=== PATIENT | male | born 1935 | race Caucasian/White ===

== ENCOUNTER 2017-03-22 16:53 | Inpatient (IN) | payer OTHER ==
--- NOTE | ~2017-03-22 | DS ---
Unit #: [id number] #: [id number] Patient: YASH LEMONS [id number] [address] [address] [id number] I MR#: [id number] NAME: YASH LEMONS ROOM: 565 Age: 81 Sex: M Admission Date: 03/22/2017 : 1935 Discharge Date: 03/29/2017 Attending Physician: Kylie Tolentino M.D. Primary Care Physician: Isi Barraza M.D. DISCHARGE SUMMARY FINAL DIAGNOSES 1. Acute on chronic hypoxic respiratory failure. 2. Right lower lobe pneumonia. 3. Chronic obstructive pulmonary disease. 4. Hypotension on admission, which is improved. 5. Reformed smoker. 6. History of coronary artery disease, status post stents. 7. Hyperlipidemia. 8. History of pulmonary fibrosis. DISCHARGE MEDICATIONS 1. Omnicef 300 mg p.o. b.i.d. for 5 days. 2. Prednisone tapering dose. 3. Toprol 25 mg daily. 4. Brovana inhaler daily. 5. Isosorbide 20 mg t.i.d. 6. Federico-Dur 300 mg daily. 7. Potassium 10 mEq daily. 8. Aspirin 81 mg daily. 9. Singulair 10 mg daily. 10. Atorvastatin 10 mg daily. 11. Colchicine 0.6 mg daily p.r.n. 12. Discontinuing medication is Altace 5 mg daily and hydrochlorothiazide 12.[address] Camilo from pulmonary services. PROCEDURES PERFORMED Diagnostic bronchoscopy, which showed no endobronchial lesions, thick mucoid secretions in both lungs. DIAGNOSTIC DATA LABORATORY: At discharge, bronch culture is normal julieta. Blood culture is no growth. Cytology in the bronch is benign bronchial epithelial cells. BMP shows sodium 141, potassium 4.6, chloride 101, BUN 20, creatinine 0.5. CBC shows white blood cell count 9.0, hemoglobin 12.1, hematocrit 39.2, platelet count 182. IMAGING: CT scan of the chest without contrast was done and that showed right lower lobe consolidation. HOSPITAL COURSE Mr. Galloway is an 81-year-old male who was admitted to the hospital with Unit #: [id number] #: [id number] Patient: YASH LEMONS shortness of breath and was admitted with acute chronic obstructive pulmonary disease exacerbation and pneumonia and vxjjn-ie-wpvogom respiratory failure. The patient as treated with IV antibiotics and IV prednisone. Dr. Camilo was consulted. The patient had bronch done. Findings are as above. He is doing much better at this time and is being discharged home on the above medications. Prescription have been written. Please note the patient was hypotensive on admission and now blood pressure medications have been adjusted. The patient needs to follow up with Dr. Camilo as an outpatient. The patient is on 3 liters nasal cannula, continue that. PHYSICAL EXAMINATION VITALS: At discharge, blood pressure 120/62, respiratory rate 18, pulse 85, temperature 97.8, oxygen saturation 100%. HEENT: Head is normocephalic. CHEST: Chest is fair air entry. Decreased at the bases. Negative edema. DISCHARGE INSTRUCTIONS 1. Follow up with primary care provider in one week. 2. Follow up with Dr. Camilo in two weeks. Please note, I have discussed with the patient's about the plan of care and she does verbalize understanding. Dictated by... Kylie Tolentino M.D. Mary TD: 03/30/2017 08:46 JOB #: [id number] DISCHARGE SUMMARY Page 1 of 1 X Kylie Tolentino MD X DISCHARGE SUMMARY
--- NOTE | ~2017-03-22 | CR72 ---
[facility] A Service of [facility] RADIOLOGY TEXT RESULTS PATIENT: YASH LEMONS LOCATION: [facility] : 33 UNIT #: [id number] AGE: [address]: Kylie Tolentino MD SEX: M ORDER DR: [id number] [facility] [address] [facility] [place], [place] [address] [id number] I MR#: [id number] Acc #: [id number] NAME: YASH LEMONS : 1935 SEX: M STUDY DATE/TIME: 03/22/2017 15:10 UNIT: CEDOF ROOM: 08610 STUDY DESCRIPTION: CR Chest Single View Portable Attending Physician: Kylie Tolentino M.D. Ordering Physician: [facility] Primary Care Physician: Isi Barraza M.D. MEDICAL IMAGING REPORT This report is preliminary unless electronic signature is present EXAM Portable chest 03/22/2017 HISTORY Shortness of breath, cough, congestion since yesterday. COMPARISON STUDIES 12/31/2015 FINDINGS There are new patchy infiltrates within the right lung mainly in the mid and lower zones suspicious for pneumonia. Heart size stable. Degenerative changes of the shoulders and thoracic spine. IMPRESSION New patchy infiltrates in the right lung mainly in the mid and lower zones suspicious for pneumonia. Dictated by... Galindo Dow M.D. THIS IS AN ELECTRONICALLY VERIFIED REPORT Galindo Dow M.D. at 03/23/2017 5:10 PM Michaelle TD: 03/22/2017 17:30 JOB #: [id number] MEDICAL IMAGING REPORT Page 1 of 1 COPY
--- NOTE | ~2017-03-22 | CO ---
Unit #: [id number] #: [id number] Patient: YASH LEMONS [id number] [address] [place], [place] [address] [id number] I MR#: [id number] NAME: YASH LEMONS ROOM: 565 Age: 81 Sex: M Admission Date: 03/22/2017 : 1935 Attending Physician: Kylie Tolentino M.D. Primary Care Physician: Isi Barraza M.D. CONSULTATION REPORT REASON FOR CONSULTATION COPD exacerbation and respiratory failure. CHIEF COMPLAINT Shortness of breath. HISTORY OF PRESENT ILLNESS An 81-year-old male with past medical history of COPD, hypertension, chronic kidney disease, coronary artery disease, dyslipidemia who presented with a complaint of cough, shortness of breath, increasing sputum production who has been admitted with impression of community-acquired pneumonia, COPD exacerbation, respiratory failure. I am seeing the patient at bedside. He denies any headache, blurry vision. No chest pain. REVIEW OF SYSTEMS Positive for pallor. No edema. No cyanosis or jaundice. Rest are per history of present illness. Rest of 12-point review of systems has been reviewed and is negative. MEDICATIONS As per MAR, has been reviewed. ALLERGIES Have been reviewed. PAST MEDICAL HISTORY As described above. SOCIAL HISTORY Positive for smoking. No alcohol. No drug abuse. FAMILY HISTORY None as per record. PHYSICAL EXAMINATION VITAL SIGNS: Temperature 98, pulse 87, respirations 12, blood pressure 130/70. NEUROLOGIC: Awake, alert, oriented. No neuro deficit. HEENT: PERRLA plus 1. NECK: Supple. No JVD. CHEST: Bilateral air entry. Bilateral mild rhonchi. GASTROINTESTINAL: Nontender, soft. Bowel sounds positive. EXTREMITIES: No edema. Unit #: [id number] #: [id number] Patient: YASH LEMONS SKIN: No rash. No ulcer. LYMPHATIC: No lymphadenopathy. DIAGNOSTIC STUDIES Labs and imaging have been reviewed. ASSESSMENT 1. Acute hypoxic hypercapnic respiratory failure. 2. Acute exacerbation of chronic obstructive pulmonary disease. 3. Community-acquired pneumonia. PLAN Plan is to continue IV steroids, IV antibiotics, bronchodilator, gastrointestinal/deep venous thrombosis prophylaxis. Get a noncontrast CT of the chest. Wean oxygen. Please see orders for detailed plan. Thank you very much for this consultation. Dictated by... Keaton Salmeron TD: 03/23/2017 12:39 JOB #: [id number] CONSULTATION REPORT Page 1 of 1 X Clemente Camilo MD CONSULTATION REPORT
--- NOTE | ~2017-03-22 | HP ---
Unit #: [id number] #: [id number] Patient: YASH LEMONS [id number] [address] [place], [place] [address] [id number] I MR#: [id number] NAME: YASH LEMONS ROOM: 95612 Age: Sex: M Admission Date: 03/22/2017 : 1935 Attending Physician: Kylie Tolentino M.D. Primary Care Physician: Isi Barraza M.D. HISTORY AND PHYSICAL CHIEF COMPLAINT Shortness of breath. HISTORY OF PRESENTING ILLNESS An 81-year-old male who lives with his , has a history of severe COPD, chronic respiratory failure, coronary artery disease and hypertension, came with a complaint of shortness of breath On Wednesday the patient's noticed that he was having shortness of breath. She advised him to come to ER but patient refused completely. Yesterday his shortness of breath was getting worse. He has not been eating for last few days. He was feeling nauseous and some cough. His temperature was 98.2 per . He did not complain of chest pain but he was wheezing. Patient came to ER and is being admitted to telemetry unit for acute COPD exacerbation. Patient is being evaluated in emergency room six. There is no complaint of chest pain, no complaint of fever, chills or rigors, no complaint of vomiting or diarrhea. PAST MEDICAL HISTORY 1. History of chronic obstructive pulmonary disease. 2. History of coronary artery disease, status post stent placement. 3. Chronic respiratory failure on home O2. 4. Reformed smoker, quit in 1995. 5. Hypertension. 6. Hyperlipidemia. 7. Maybe history of pulmonary fibrosis. HOME MEDICATION Med list is being compiled at this time in ER. SOCIAL HISTORY Patient lives at home with his . He has past history of smoking, quit in 1995, no history of alcohol abuse or drug abuse. ALLERGIES Iodine and allopurinol. PAST SURGICAL HISTORY History of stent placement and PCI. REVIEW OF SYMPTOMS As per history of presenting illness. No history of abdominal pain. No history of constipation, diarrhea. No history of nausea or vomiting. No history of chest pain. No history of syncopal episode or dizziness. He Unit #: [id number] #: [id number] Patient: YASH LEMONS does complain of fatigue and tiredness. PHYSICAL EXAMINATION Patient is being evaluated in room six in ER. VITAL SIGNS: Blood pressure is 99/65. Respiratory rate 24. Pulse is 114. Temperature 98.7. Oxygen saturation dropped down to 86% and patient is on BiPAP at this time. HEENT: Head is normocephalic. Eye movements are normal. NECK: Neck is supple. CHEST: Has decreased air entry bilateral, crackle in the right base is present, wheezing is heard. CVS: S1, S2 positive, regular rhythm, tachycardia. ABDOMEN: Soft. EXTREMITIES: Negative edema. TRAINING ASSOCIATE: Patient is awake, alert and oriented x3. No focal neurological deficit. DIAGNOSTIC STUDIES LABORATORY WORKUP: WBC 19.9, hemoglobin 14.8, hematocrit 47.2 and platelet count of 161, sodium 139, potassium 3.8, chloride 94, BUN 22, creatinine 0.9, troponin is less than 0.05. IMAGING: Chest x-ray preliminary report infiltrate. ASSESSMENT Patient is being admitted to a telemetry unit with: 1. Acute chronic obstructive pulmonary disease exacerbation. 2. Pithw-dq-iudxynl respiratory failure. 3. Community-acquired pneumonia. 4. Hypotension with a history of hypertension. 5. Reformed smoker. PLAN Plan is admit to telemetry. IV Solu-Medrol 60 mg q.6 h. is being started, mini-neb treatment is being started, IV Rocephin and IV Zithromax will be given. Dr. Camilo will be consulted. Sputum for Gram stain and culture will be done. CBC, BMP in the morning. Lovenox 40 mg subcu daily for DVT prophylaxis. Medication will be reviewed. Plan of care has been discussed with patient and the patient's . Dictated by Keaton Bain TD: 03/22/2017 16:25 JOB #: [id number] Unit #: [id number] #: [id number] Patient: YASH LEMONS HISTORY AND PHYSICAL Page 1 of 1 X Kylie Tolentino MD HISTORY AND PHYSICAL
--- NOTE | ~2017-03-22 | OR ---
Unit #: [id number] #: [id number] Patient: YASH LEMONS [id number] [address] [address] [id number] I MR#: [id number] NAME: YASH LEMONS ROOM: 5 Date of Procedure: 03/26/2017 Admission Date: 03/22/2017 Surgeon: Clemente Camilo M.D. : 1935 Attending Physician: Kylie Tolentino M.D. Primary Care Physician: Isi Barraza M.D. PROCEDURE OPERATIVE NOTE PROCEDURE PERFORMED Diagnostic bronchoscopy. INDICATIONS Pneumonia. PREPROCEDURE DIAGNOSIS Pneumonia. POSTPROCEDURE DIAGNOSIS Pneumonia. DETAILS OF PROCEDURE After (1) consent from patient explaining the risks and benefits. Patient placed in a proper position. Bronchoscope introduced through the oral cavity. Vocal cords appear to be symmetrically moving toward the midline. Trachea was normal. Deisi was sharp. We examined right upper and middle, right lower lobe, left upper lobe, lingula, and left lower lobe. No endobronchial lesion was found. There were thick mucoid secretions in both lungs, which were therapeutically suctioned. Then, we did a bronchoalveolar lavage in the right lower lobe area with 60 mL of saline in and 20 mL back. Patient tolerated procedure very well. No complications happened. Dictated by... Keaton Salmeron TD: 03/26/2017 10:08 JOB #: [id number] Unit #: [id number] #: [id number] Patient: YASH LEMONS PROCEDURE OPERATIVE NOTE Page 1 of 1 X Clemente Camilo MD PROCEDURE OPERATIVE NOTE
--- NOTE | ~2017-03-22 | EKG ---
PATIENT: YASH LEMONS UNIT #: [id number] Ventricular Rate: 123 BPM Atrial Rate: 123 BPM P-R Interval: 152 ms QRS Duration: 106 ms Q-T Interval: 316 ms QTC Calculation(Bezet): 452 ms P [place]: 84 degrees Calculated R [place]: 40 degrees Calculated T [place]: 9 degrees Diagnosis Line: Diagnosis Line: Sinus tachycardia Diagnosis Line: Possible Left atrial enlargement Diagnosis Line: Inferior infarct (cited on or before 30-DEC-2015) Diagnosis Line: Abnormal ECG Diagnosis Line: When compared with ECG of 30-DEC-2015 13:26, Diagnosis Line: ST no longer depressed in Anterolateral leads Diagnosis Line: T wave inversion more evident in Inferior leads Diagnosis Line: Confirmed by MARK HARRIS MD ([id number]) on 03/22/2017 Diagnosis Line: 10:36:23 PM INTERPRETING MD: KIMBERLY WELCH
--- NOTE | ~2017-03-22 | CT57 ---
[facility] A Service of [facility] RADIOLOGY TEXT RESULTS PATIENT: YASH LEMONS LOCATION: [facility] : 33 UNIT #: [id number] AGE: [address]: Kylie Tolentino MD SEX: M ORDER DR: [id number] [facility] [address]. [place], [place] [address] [id number] I MR#: [id number] Acc #: [id number] NAME: YASH LEMONS : 1935 SEX: M STUDY DATE/TIME: 03/23/2017 15:23 UNIT: [facility] ROOM: [facility] STUDY DESCRIPTION: CT Chest Wo Cont Attending Physician: Kylie Tolentino M.D. Ordering Physician: Clemente Camilo M.D. Primary Care Physician: Isi Barraza M.D. MEDICAL IMAGING REPORT This report is preliminary unless electronic signature is present EXAM CT of the chest without contrast INDICATIONS Acute shortness of breath and dyspnea for 2 days, COPD. TECHNIQUE CT of the chest was performed without contrast. Coronal and sagittal reformatted images were obtained. This CT exam was performed with one or more of the following radiation dose reduction techniques: automatic exposure control, adjustment of mA and/or kV according to patient size, and iterative reconstruction. COMPARISON Comparison with 12/30/2015 FINDINGS There is stable scarring in the lung apices. Emphysema. There is airspace consolidation in the posterior right lower lobe with adjacent small pleural effusion. Findings are suspicious for pneumonia. There is no lymphadenopathy. Tiny hiatal hernia. Coronary artery calcifications. Limited imaging of the upper abdomen demonstrates diverticula within the colon, but otherwise unremarkable. Bone windows are unremarkable. IMPRESSION There is a right lower lobe consolidation with adjacent small pleural effusion. Findings are suspicious for pneumonia. Follow up to clearing is recommended. Dictated by... [facility] A Service [facility] RADIOLOGY TEXT RESULTS PATIENT: YASH LEMONS LOCATION: [facility] : 33 UNIT #: [id number] AGE: [address]: Kylie Tolentino MD SEX: M ORDER DR: Galindo Dow M.D. THIS IS AN ELECTRONICALLY VERIFIED REPORT Galindo Dow M.D. at 03/25/2017 7:26 AM Apolinar TD: 03/23/2017 18:59 JOB #: [id number] MEDICAL IMAGING REPORT Page 1 of 1 COPY
[2017-03-22 15:03] LABS: POC - CKMB 1.8 ng/mL (0.0-7.9); POC - TROPONIN <0.05 ng/mL (<=0.05)
[2017-03-22 15:27] LABS: BASOPHIL% 0.2 % (0-2.5); HEMATOCRIT 47.2 % (38.0-50.0); HEMOGLOBIN 14.8 gm/dL (13.0-16.0); LYMPHOCYTE# 0.4 X10e3 (1.0-3.5); LYMPHOCYTE% 2.2 % (17.0-45.0); MEAN CELL VOLUME 78.8 FL (83-96); MEAN CORPUSCULAR HEMOGLOBIN 24.6 PG (28-34); MEAN CORPUSCULAR HGB CONC 31.3 g/dL (30-36); MEAN PLATELET VOLUME 9.5 FL (6.5-11.5); MONOCYTE# 1.4 X10e3 (0-1.0); MONOCYTE% 6.8 % (3.0-12.0); NEUTROPHIL# 18.1 X10e3 (1.5-7.1); NEUTROPHIL% 90.8 % (40-75); PLATELET COUNT 161 X10e3 (140-420); RED CELL DISTRIBUTION WIDTH 15.3 % (11.0-15.5); WHITE BLOOD COUNT 19.9 X10e3 (4.0-10.5)
[2017-03-22 15:29] LABS: DIFF IND YES
[2017-03-22 15:47] LABS: BUN/CREATININE RATIO 24.44; CALCIUM SERUM 9.4 mg/dL (8.4-10.2); CREATININE SERUM 0.9 mg/dL (0.6-1.4); GLOM FILT RATE Estimated 78.7 mL/min (>60); POTASSIUM 3.8 mmol/L (3.5-5.1)
[2017-03-22 15:55] LABS: ANISOCYTOSIS MOD; PLATELET ESTIMATE NORMAL (NORMAL)
[~2017-03-22 16:53] MED LIST: ADVAIR 500-501 EACH IH; ADVAIR DISKU1 500/50 INH; ALBUTEROL MININEB NEB; ALDACTONE PO; ALTACE PO; ALTACE10 M1 PO; ALTACE10 M2 PO; ASPIR-TRIN325 MG PO; ASPIRIN EC81 M1 PO; ASPIRIN81 M2 PO; ATORVASTATIN CA10 MG PO; ATROVENT HFA12.9 G1 IH; AZITHROMYCIN250 MG PO; Albuterol; BROVANA15 MCG/2 M INH; BUDESONIDE0.5 MG/2 M INH; CLOPIDOGREL75 MG PO; COLCHICINE0.6 M1 PO; COLCRYS0.6 M2 PO; COLCRYS0.6 MG PO; COMBIVENT MININEB INH; DALIRESP500 MCG PO; FLOMAX0.4 M1 PO; FLOVENT DI50 MCG/DIS IH; FLOVENT DISKU100 MCG IH; HYDROCHLOROTH12.5 MG PO; HYDROCHLOROTHIA25 MG PO; IMDUR30 MG PO; ISORDIL PO; ISOSORBIDE DINI10 MG PO; ISOSORBIDE MONO20 M1 PO; K-DUR10 MEQ PO; LASIX PO; LESCOL; LESCOL PO; LESCOL XL80 MG PO; LEVAQUIN750 MG PO; LIPITOR PO; METOPROLOL SUCC25 MG PO; PLAVIX PO; POTASSIUM CHLO10 MEQ PO; PREDNISONE1 MG PO; PREDNISONE10 MG/DOSE PO; PREDNISONE5 MG PO; SEREVENT D50 MCG/DIS PO; SINGULAIR PO; SPIRIVA18 MCG INH; THEO-DUR300 MG PO; THEOCHRON PO; THEOCHRON100 MG PO; TOPROL XL50 MG PO; ULORIC40 MG PO; XOPENEX0.63 MG/3 INH
[2017-03-22 22:02] LABS: ARTERIAL BLD GAS O2 SATURATION 97.7 % (90.0-100.0); ARTERIAL BLOOD GAS CARBOXY HB 0.6 %sat (0.0-9.0); ARTERIAL BLOOD GAS HCO3 34.4 mmol/L; ARTERIAL BLOOD GAS pH 7.356 (7.350-7.450)
[2017-03-22 22:03] LABS: ARTERIAL BLOOD GAS ALLEN TEST NORMAL; ARTERIAL BLOOD GAS ART SITE RIGHT RADIAL; ARTERIAL BLOOD GAS PCO2 61.4 mmHg (35.0-45.0); ARTERIAL DRAW? YES
[2017-03-23 06:48] LABS: HEMATOCRIT 43.1 % (38.0-50.0); HEMOGLOBIN 13.5 gm/dL (13.0-16.0); LYMPHOCYTE# 0.4 X10e3 (1.0-3.5); LYMPHOCYTE% 2.7 % (17.0-45.0); MEAN CORPUSCULAR HEMOGLOBIN 24.7 PG (28-34); MEAN CORPUSCULAR HGB CONC 31.3 g/dL (30-36); MEAN PLATELET VOLUME 9.6 FL (6.5-11.5); MONOCYTE# 0.6 X10e3 (0-1.0); MONOCYTE% 4.3 % (3.0-12.0); NEUTROPHIL# 12.5 X10e3 (1.5-7.1); PLATELET COUNT 165 X10e3 (140-420); RED BLOOD COUNT 5.45 X10e (3.90-5.60); RED CELL DISTRIBUTION WIDTH 15.7 % (11.0-15.5); WHITE BLOOD COUNT 13.5 X10e3 (4.0-10.5)
[2017-03-23 06:50] LABS: DIFF IND NO
[2017-03-23 07:03] LABS: CALCIUM SERUM 8.8 mg/dL (8.4-10.2); GLOM FILT RATE Estimated 69.3 mL/min (>60); POTASSIUM 3.5 mmol/L (3.5-5.1)
[2017-03-24 06:33] LABS: HEMATOCRIT 39.8 % (38.0-50.0); HEMOGLOBIN 12.3 gm/dL (13.0-16.0); MEAN CORPUSCULAR HEMOGLOBIN 24.4 PG (28-34); MEAN CORPUSCULAR HGB CONC 30.9 g/dL (30-36); MEAN PLATELET VOLUME 8.9 FL (6.5-11.5); RED BLOOD COUNT 5.04 X10e (3.90-5.60); RED CELL DISTRIBUTION WIDTH 15.2 % (11.0-15.5); WHITE BLOOD COUNT 14.9 X10e3 (4.0-10.5)
[2017-03-24 07:02] LABS: BUN/CREATININE RATIO 54.28; CALCIUM SERUM 8.7 mg/dL (8.4-10.2); CREATININE SERUM 0.7 mg/dL (0.6-1.4); GLOM FILT RATE Estimated 87.3 mL/min (>60); POTASSIUM 4.2 mmol/L (3.5-5.1)
[2017-03-25 06:28] LABS: HEMATOCRIT 38.8 % (38.0-50.0); HEMOGLOBIN 12.2 gm/dL (13.0-16.0); MEAN CELL VOLUME 79.3 FL (83-96); MEAN CORPUSCULAR HEMOGLOBIN 24.9 PG (28-34); MEAN CORPUSCULAR HGB CONC 31.4 g/dL (30-36); MEAN PLATELET VOLUME 9.1 FL (6.5-11.5); RED BLOOD COUNT 4.89 X10e (3.90-5.60); RED CELL DISTRIBUTION WIDTH 15.6 % (11.0-15.5)
[2017-03-25 06:29] LABS: WHITE BLOOD COUNT 7.3 X10e3 (4.0-10.5)
[2017-03-25 07:24] LABS: BUN/CREATININE RATIO 42.85; CALCIUM SERUM 8.6 mg/dL (8.4-10.2); CREATININE SERUM 0.7 mg/dL (0.6-1.4); GLOM FILT RATE Estimated 87.3 mL/min (>60); POTASSIUM 4.9 mmol/L (3.5-5.1)
[2017-03-26 07:22] LABS: CALCIUM SERUM 8.6 mg/dL (8.4-10.2); CREATININE SERUM 0.5 mg/dL (0.6-1.4); GLOM FILT RATE Estimated 100.3 mL/min (>60); POTASSIUM 4.8 mmol/L (3.5-5.1)
[2017-03-26 11:12] LABS: BODY FLUID APPEARANCE TURBID; BODY FLUID SOURCE BRONCHIAL LAVAGE
[2017-03-27 06:43] LABS: HEMATOCRIT 39.2 % (38.0-50.0); HEMOGLOBIN 12.1 gm/dL (13.0-16.0); MEAN CELL VOLUME 79.2 FL (83-96); MEAN CORPUSCULAR HEMOGLOBIN 24.5 PG (28-34); MEAN CORPUSCULAR HGB CONC 30.9 g/dL (30-36); MEAN PLATELET VOLUME 8.6 FL (6.5-11.5); RED BLOOD COUNT 4.95 X10e (3.90-5.60); RED CELL DISTRIBUTION WIDTH 15.1 % (11.0-15.5)
[2017-03-27 06:57] LABS: INR 1.2; PROTHROMBIN TIME (PATIENT) 12.2 SECONDS (9.6-11.5)
[2017-03-27 07:23] LABS: CALCIUM SERUM 8.2 mg/dL (8.4-10.2); CREATININE SERUM 0.5 mg/dL (0.6-1.4); GLOM FILT RATE Estimated 100.3 mL/min (>60); POTASSIUM 4.6 mmol/L (3.5-5.1)
[2017-03-29] MEDS ORDERED: PREDNISONE PO (16:05)
[2017-03-29] MEDS ORDERED: OMNICEF300 MG PO (16:06)
== END 2017-03-29 16:56 | disposition home or self-care (01) | DRG 166 ==
LOC: CED 16:53 → CEDOF 16:54 → C5C 22:38
PROVIDERS: Emergency Medicine; Hospitalist; Internal Medicine; Physician Assistant Medical
PROC: 0B968ZX Drainage of Right Lower Lobe Bronchus, Via Natural or Artificial Opening Endoscopic, Diagnostic (ICD-10-PCS; principal; 2017-03-26 09:30)
PROC: 0B9M8ZZ Drainage of Bilateral Lungs, Via Natural or Artificial Opening Endoscopic (ICD-10-PCS; 2017-03-26 09:30)
DX: J96.21 Acute and chronic respiratory failure with hypoxia (principal); J18.9 Pneumonia, unspecified organism; I95.9 Hypotension, unspecified; J44.0 Chronic obstructive pulmonary disease with (acute) lower respiratory infection; J84.10 Pulmonary fibrosis, unspecified; J44.1 Chronic obstructive pulmonary disease with (acute) exacerbation; J96.22 Acute and chronic respiratory failure with hypercapnia; Z87.891 Personal history of nicotine dependence; I25.10 Atherosclerotic heart disease of native coronary artery without angina pectoris; Z95.5 Presence of coronary angioplasty implant and graft; E78.5 Hyperlipidemia, unspecified
CPT/HCPCS: 36415; 36600; 71010; 71250; 80048; 80202; 82308; 82553; 82803; 82947; 83605; 83880; 84484; 85025; 85027; 85610; 87040; 87070; 87102; 87106; 87116; 87205; 87206; 87252; 87254; 87278; 88108; 88305; 88312; 89051; 93005; 94640; 94660; 94760; 96374; 97116; 97161; 97167; 97530; 99291; G8978-GP; G8979-GP; G8987-GO; G8988-GO; G8989-GO; J0171; J0456; J0696; J1650; J2930; J3370

== ENCOUNTER 2017-07-10 14:28 | Inpatient (IN) | payer OTHER ==
[~2017-07-10] VITALS: Ht 180.3 cm; Wt 74.2 kg
--- NOTE | ~2017-07-10 | CT71 ---
[facility] A Service of [facility] RADIOLOGY TEXT RESULTS PATIENT: YASH LEMONS LOCATION: [address] : [birth year] UNIT #: [id number] AGE: [address]: Kylie Tolentino MD SEX: M ORDER DR: [id number] [place] [id number] [facility]. [place], [place] [address] [id number] I MR#: [id number] Acc #: [id number] NAME: YASH LEMONS : 1935 SEX: M STUDY DATE/TIME: 07/10/2017 17:24 UNIT: [facility] ROOM: [facility] STUDY DESCRIPTION: CT Head Wo Contrast Attending Physician: Kylie Tolentino M.D. Ordering Physician: Alex Neil D.O. Primary Care Physician: Isi Barraza M.D. MEDICAL IMAGING REPORT This report is preliminary unless electronic signature is present EXAM CT head. INDICATIONS Confusion for 1 day. Shortness of air. Hypoxia. TECHNIQUE CT of the head without contrast. This CT exam was performed with one or more of the following radiation dose reduction techniques: automatic exposure control, adjustment of mA and/or kV according to patient size, and iterative reconstruction. COMPARISON None available. FINDINGS There is no acute intracranial hemorrhage, mass lesion, or acute infarct. There is some generalized atrophy. The ventricles and basilar cisterns are normal in size and configuration. No extraaxial collections. No acute osseous abnormalities. There is trace left mastoid effusion. IMPRESSION No acute intracranial findings. Dictated by... Marcus Delvalle M.D. THIS IS AN ELECTRONICALLY VERIFIED REPORT Marcus Delvalle M.D. at 07/11/2017 5:44 PM [facility] A Service of [facility] RADIOLOGY TEXT RESULTS PATIENT: YASH LEMONS LOCATION: [facility] 55 : 33 UNIT #: [id number] AGE: [address]: Kylie Tolentino MD SEX: M ORDER DR: Victor Hugo TD: 07/11/2017 17:39 JOB #: [id number] MEDICAL IMAGING REPORT Page 1 of 1 COPY
--- NOTE | ~2017-07-10 | CO ---
Unit #: [id number] #: [id number] Patient: YASH LEMONS [id number] [place] [address] [facility]. [place], [place] [address] [id number] I MR#: [id number] NAME: YASH LEMONS ROOM: 556 Age: 81 Sex: M Admission Date: 07/10/2017 : 1935 Attending Physician: Kylie Tolentino M.D. Primary Care Physician: Isi Barraza M.D. Consultation Date: 07/17/2017 CONSULTATION REPORT REASON FOR EVAL Right lower extremity posterior tibial DVT. Please evaluate. HISTORY OF PRESENT ILLNESS 81-year-old gentleman who has multiple medical problems including coronary artery disease, status post coronary interventions, COPD with acute on chronic respiratory failure, history of hypertension, and history of very significant GI bleed resulting in hospitalization and endoscopy, which showed AV malformation and currently the patient is on aspirin and Plavix. PAST HISTORY Negative for other GI bleeds. FAMILY HISTORY Negative for bleeding disorders. SOCIAL HISTORY Patient is retired, has a very supportive family who is present in the room and nonsmoker. No alcohol usage. CHRONIC MEDICATIONS Aspirin, Plavix, theophylline, potassium, Percocet, Singulair, colchicine, metoprolol, Brovana, amiodarone, Flomax, Atrovent, and prednisone. REVIEW OF SYSTEMS Very extensive, ill health, tiredness, shortness of breath on exertion, aches and pains in the joints, and when he ambulates there is a slight degree of discomfort in the calves bilaterally, right worse than the left. Otherwise eight or ten systems are with normal limits on exam. Elderly gentleman in no acute distress, lying flat on his back on O2. No supraclavicular, axillary or groin nodes. LUNGS: Crackles. No rales. CARDIOVASCULAR: Distant S1 and S2. ABDOMEN: No organomegaly. GLOVE FORMER: Grossly intact. RECTAL: Not done. EXTREMITIES: Right lower extremity very faint edema, pulses are 2+, left leg is normal to exam. There is no calf tenderness and there is no palpable cord and there is no redness in the calf. DIAGNOSTIC STUDIES LABORATORY STUDIES: Glucose 82, BUN 27, creatinine 0.6, sodium 142, potassium 4.1, chloride 93, CO2 44. Hemoglobin 9.9, hematocrit 30.7, white count 10.3, platelets 180,000. Dopplers were reviewed and the Unit #: [id number] #: [id number] Patient: YASH LEMONS results discussed. He had an ultrasound on 07/10/2017 and it was repeated 07/12/2017 and it showed right posterior tibial DVT, but the rest of the vessels were patent and the age of this DVT undetermined. IMPRESSION This 81-year-old gentleman with multiple medical problems had significant GI bleed with AVMs and could still have AVMs present. He is on aspirin and Plavix due to his cardiac condition. So at this point a long discussion was held with the patient and his family. Adding an anticoagulant to his care would be very very risky and the clot in the posterior tibial is known to not cause pulmonary emboli on the average, so at this point instead of taking that risk we would rather let him go home, recheck the Doppler two weeks from the time it was done previously, which was 07/10/[address] Isi Barraza, reported to Dr. Nathan, and reported to Dr. Espinosa and if there is evidence of clot progression would consider IVC filter at that point. Dictated by... Keaton Sandhu/mykel TD: 07/17/2017 13:03 JOB #: [id number] CONSULTATION REPORT Page 1 of 1 X Abhinav Espinosa MD X CONSULTATION REPORT
--- NOTE | ~2017-07-10 | CO ---
Unit #: [id number] #: [id number] Patient: YASH LEMONS [id number] [facility]. [place], [place] [address] [id number] I MR#: [id number] NAME: YASH LEMONS ROOM: 556 Age: 81 Sex: M Admission Date: 07/10/2017 : 1935 Attending Physician: Kylie Tolentino M.D. Primary Care Physician: Isi Barraza M.D. CONSULTATION REPORT REASON FOR CONSULTATION Ventricular tachycardia. HISTORY OF PRESENT ILLNESS This is an 81-year-old white male, who sees a bilingual office assistant by the name of Deny Lemons M.D. in [place], [place] for history of myocardial infarction in the past. The patient is a poor historian, but says he had a myocardial infarction in 1994, where he underwent angioplasty and stent placement. In 2003, he underwent PCI with two stent placement to the right coronary artery. The states he has had a total of 6 stents. He was seen by our group in 2010 and was ruled out for an acute coronary syndrome. He underwent Lexiscan Cardiolite stress test which was normal. He had normal left ventricular systolic function. He has had no procedures since that time. He is known to have hypertension, hyperlipidemia, COPD which he is on home oxygen. The patient was discharged from [facility] with GI bleed on 07/10/2017. According to the , he underwent scopes and had an ulcer. Prior to that admission, the patient was hypotensive at home, where the says his "blood pressure blow them out." She had records of his blood pressure, which she takes twice a day and his lowest blood pressure was 87/69 mmHg. He was advised to stop metoprolol and his antihypertensive medications. During his hospitalization at [facility], aspirin and Plavix were discontinued. He was restarted on aspirin, but was told to start taking Plavix again today. The patient made at home after discharge, but he became very short of breath when walking into the house. After he get into the house, the patient passed out. EMS was dispatched. He had a low oxygen saturation level and was brought here to [facility]. He was admitted with respiratory failure. He has been treated for pneumonia, but antibiotics has been discontinued. In the course of his stay, the patient had several runs of ventricular tachycardia up to 14 beats. The patient was unaware of palpitations. He denies any symptoms of angina. He has no paroxysmal nocturnal dyspnea or orthopnea. Electrolytes are within normal limits. On admission, his troponin was normal. His EKG shows no acute ischemic changes. PAST MEDICAL HISTORY 1. 2D echocardiogram on 03/16/2011, which was a technically difficult study with an ejection fraction of 25%. Valves were not well visualized. 2. Lexiscan Cardiolite stress test on 03/20/2011 shows no ischemia. There was suspicions for moderate-sized inferior wall myocardial infarction. His ejection fraction 50%. 3. Myocardial infarction, status post PCI and stent in 1994. No details available. Unit #: [id number] #: [id number] Patient: YASH LEMONS 4. PCI with Vision stents x2 to the right coronary artery in 2003. (According to the , the patient has a total of 6 stents). 5. Hypertension. 6. Hyperlipidemia. 7. COPD, on home O2. 8. Pulmonary fibrosis. 9. Recent GI bleed, status post EGD and colonoscopy. No details available. 10. Former smoker. PAST SURGICAL HISTORY Recent EGD and colonoscopy. SOCIAL HISTORY The patient is and retired. He quit smoking in 1994. He denies any illicit drug or alcohol use. FAMILY HISTORY Noncontributory. ALLERGIES Iodine and allopurinol. HOME MEDICATIONS Aspirin 81 mg daily, atorvastatin 10 mg q.h.s., Brovana 15 mg daily, colchicine 0.6 mg daily p.r.n., Plavix 75 mg daily, potassium chloride 10 mEq daily, Singulair 10 mg daily, theophylline 300 mg daily, prednisone 40 mg daily, Omnicef 300 mg b.i.d., hydrochlorothiazide 12.5 mg daily, isosorbide 20 mg t.i.d., metoprolol succinate 25 mg daily, Altace 5 mg daily. All discontinue because of hypotension. REVIEW OF SYSTEMS CONSTITUTIONAL: Negative for fever or chills. Has no weight gain or weight loss. HEENT: No headache, hearing or vision changes, difficulty with swallowing. Denies dizziness. CARDIOVASCULAR: Has no symptoms of angina. Unaware of palpitations. No paroxysmal nocturnal dyspnea or orthopnea. Denies syncope or near syncope. RESPIRATORY: Has no current dyspnea or cough. Denies hemoptysis. GASTROINTESTINAL: No abdominal pain, nausea, or vomiting. No constipation, hematochezia, hematemesis, or melena. EXTREMITIES: Has occasional lower extremity edema. PHYSICAL EXAMINATION VITAL SIGNS: Blood pressure 106/56, heart rate 87, temperature 98.4, BMI is 24. GENERAL: This is an 81-year-old elderly white male, who is in no acute respiratory distress. NEUROLOGIC: He is awake, alert, and oriented. There are no focal weaknesses. NECK: Trachea is midline. No thyromegaly or lymphadenopathy. No jugular venous distention. HEART: S1 and S2. Heart sounds are normal. No murmurs. No rubs or clicks. Regular rate and rhythm. LUNGS: Wheezes and diminished breath sounds in both lungs. No rales or rhonchi. ABDOMEN: Soft and nontender with bowel sounds are present. EXTREMITIES: With 1+ ankle edema on the right. 2+ on the left. Unit #: [id number] #: [id number] Patient: YASH LEMONS DIAGNOSTIC STUDIES LABORATORY RESULTS: Glucose 149, BUN 14, creatinine 0.7, sodium 142, potassium 4.1, magnesium 2.4. BNP 169. Troponin less than 0.05. White count 5.9, hemoglobin 7.4, hematocrit 24.2, and platelet count is 186. IMAGING STUDIES: CT of the chest shows right lower lobe consolidation with a small pleural effusion. Suspicious for pneumonia. Chest x-ray shows small bilateral pleural effusions. Questionable airspace disease. CARDIOVASCULAR STUDIES: EKG shows normal sinus rhythm with a rate at 88 beats per minute with T-wave inversions in inferior leads. Low-voltage QRS. Questionable old inferior infarct. Rhythm strip shows episodes of nonsustained ventricular tachycardia of 3 beats, 5 beats, and 14 beats. IMPRESSION 1. Acute on chronic respiratory failure. 2. Nonsustained ventricular tachycardia. 3. Severe chronic obstructive pulmonary disease. 4. Recent gastrointestinal bleed secondary to colon ulcerative lesion. 5. History of old inferior wall myocardial infarction, status post percutaneous coronary intervention and stent to the right coronary artery in 2003. 6. Hypertension. 7. Hyperlipidemia. 8. Anemia. 9. Iodine allergy. PLAN 1. Cardiology was consulted for ventricular tachycardia. We will restart the patient on metoprolol 25 mg b.i.d. 2. Cardiac catheterization is recommended to re-evaluate coronary anatomy to rule out coronary artery disease as the cause of ventricular tachycardia. Procedure risks and benefits have been explained to the patient and , and they are agreeable. We will schedule for a.m. 3. We will continue aspirin and Plavix. 4. The patient is to be transfused with packed red blood cells. 5. Start on high-intensity statin with Lipitor 80 mg daily. 6. Premedicate for iodine allergy. 7. Further recommendations pending results of the cardiac catheterization. Dictated by... Tanner Mejia A.P.R.N. for Keaton Peterson/navya TD: 07/12/2017 05:43 JOB #: [id number] Unit #: [id number] #: [id number] Patient: YASH LEMONS CONSULTATION REPORT Page 1 of 1 X Tanner Mejia APRN X CONSULTATION REPORT
--- NOTE | ~2017-07-10 | HP ---
Unit #: [id number] #: [id number] Patient: YASH LEMONS [id number] [facility]. [place], [place] [address] [id number] I MR#: [id number] NAME: YASH LEMONS ROOM: 556 Age: 81 Sex: M Admission Date: 07/10/2017 : 1935 Attending Physician: Kylie Tolentino M.D. Primary Care Physician: Isi Barraza M.D. HISTORY AND PHYSICAL HISTORY OF PRESENT ILLNESS Ytcsdm-sabcu-mbjn-old white male, history of chronic obstructive pulmonary disease, coronary artery disease, hyperlipidemia, pulmonary fibrosis, recently admitted to [facility] with a lower GI bleed, and had upper and lower endoscopy, don't have the results but according to his he had some clipping of an abnormal blood vessel in his colon which stopped the bleeding, he then was discharged home on the only to become cyanotic soon after arriving at home per EMS, then he had a full syncopal episode. He was brought to our emergency room where he had low grade temperature, tachycardia, saturation was 93% but it says it is on room air which seems unlikely since the patient is on two liters at home. In any case, his chest x-ray was vague reading of bibasilar changes. BNP was 169, hemoglobin 8.1, with low MCV, white count was normal, theophylline level was subtherapeutic at 2, one set of cardiac enzymes were normal. CMP was normal except for random blood sugar of 149, calcium of 8.2, and a total protein of 5.9, last night he had some nonsustained V-tach. His magnesium was checked and it was normal, potassium was rechecked and was within normal limits. He has been seen by pulmonary who feels like that he does not have pneumonia. His antibiotics were discontinued. He has been seen by cardiology and scheduled for cardiac catheterization in the morning. Currently his hemoglobin has dropped to 7.4, again being 8.1 yesterday evening when he arrived. The patient currently has no complaints. His is at the bedside during history and physical examination. He states that he is feeling much better. He is currently on three liters and well saturated. SOCIAL HISTORY The patient has a distant history of tobacco use, occasional alcohol use, no illicit drug use. ALLERGIES He has stated allergies to iodine and allopurinol. MEDICATIONS PRIOR TO ADMISSION 1. Aspirin 81 mg daily 2. Lipitor 10 mg q.h.s. 3. Brovana b.i.d. 4. Colchicine 0.6 mg daily as needed 5. Plavix 75 mg daily 6. Potassium 10 mEq daily 7. Singulair 10 mg daily 8. Federico-Dur 300 mg daily 9. Atrovent dose unknown 10. Flomax 0.4 mg daily Unit #: [id number] #: [id number] Patient: YASH LEMONS PAST MEDICAL HISTORY 1. Cardiac stents x6 2. Coronary artery disease. 3. Chronic obstructive pulmonary disease. 4. Pulmonary fibrosis. 5. Hypertension. 6. Hyperlipidemia. 7. Benign prostatic hypertrophy. 8. Osteoarthritis. PHYSICAL EXAMINATION GENERAL: He is awake, alert, oriented x3, no acute distress. VITAL SIGNS: Current vitals, temperature 98.3, pulse 83, respirations 20, blood pressure 131/68, and 02 sat 100% on three liters. HEENT: Unremarkable except for nasal cannula in place. NECK: Supple without jugular venous distention, bruits, lymphadenopathy, or thyromegaly. CHEST: Diffusely decreased breath sounds with end expiratory wheezes. HEART: Regular rate and rhythm without any murmurs, rubs, or gallops. ABDOMEN: Soft, nondistended, and nontender, with positive bowel sounds and no hepatosplenomegaly. EXTREMITIES: Showed no clubbing, cyanosis, or edema. /RECTAL: Deferred. NEUROLOGIC EXAM: Grossly intact. DIAGNOSTIC STUDIES LABORATORY VALUES: On four liters his pH is 7.321, pCO2 was 64, pAO2 was 63, PTT was less than 20, PT/INR is 1.1, lactic acid 1.7. Cardiac enzymes are normal x1 set. Hemoglobin was 8.1, with a MCV of 72 with a normal white count and platelet count again this morning it is down to 7.4. Urinalysis within normal limits. Potassium, last check was 4.1 with a magnesium of 2.4, theophylline level is less than 2, BNP 169. IMAGING: Chest x-ray, bibasilar "changes." CARDIOVASCULAR: EKG, sinus tach with PACs and an old inferior myocardial infarction. IMPRESSION 1. Syncope. 2. Nonsustained V-tach. 3. Coronary artery disease. 4. Lower GI bleed. 5. Anemia. 6. Chronic obstructive pulmonary disease. 7. Hyperlipidemia. 8. Pulmonary fibrosis. PLAN 1. Check VQ scan and bilateral lower extremity venous Doppler. 2. Transfuse to keep his hemoglobin above 8. 3. IV iron. 4. Pulmonary and cardiology consulted. 5. SCDs for DVT prophylaxis given recent lower GI bleed. 6. Further evaluation pending results of the above. Unit #: [id number] #: [id number] Patient: YASH LEMONS Dictated by Keaton Dsouza/maritza TD: 07/11/2017 12:53 JOB #: [id number] HISTORY AND PHYSICAL Page 1 of 1 X Winston Miller MD X HISTORY AND PHYSICAL
--- NOTE | ~2017-07-10 | CO ---
Unit #: [id number] #: [id number] Patient: YASH LEMONS [id number] [place], [place] [address] [id number] I MR#: [id number] NAME: YASH LEMONS ROOM: 556 Age: 81 Sex: M Admission Date: 07/10/2017 : 1935 Attending Physician: Kylie Tolentino M.D. Primary Care Physician: Isi Barraza M.D. Consultation Date: 07/11/2017 CONSULTATION REPORT HISTORY OF PRESENT ILLNESS Mr. Lemons is an 81-year-old male with advanced COPD, who was recently discharged from [facility]. He reports getting home, but then cannot remember how he got to the hospital. He reports a chronic productive cough that has not changed in frequency or volume or color and sputum production from his baseline. He reports constant oxygen use at home and denies any ongoing tobacco abuse. He is currently comfortable with supplement O2 and denies any shortness of breath at rest. PAST MEDICAL HISTORY Positive for COPD, coronary artery disease with history of PCI with stent placement, hypertension, dyslipidemia. SOCIAL HISTORY Positive for prior tobacco abuse, none currently reported. ALLERGIES To iodine and allopurinol. REVIEW OF SYSTEMS Denies any headache or dizziness. No visual complaints. No hearing difficulties. Chronic dyspnea on exertion and chronic cough. No chest pain. No diarrhea. No dysuria. No bleeding. No brushing. No orthopnea. CURRENT MEDICATIONS Include theophylline, vancomycin, Zosyn, tobramycin, Lipitor, Solu-Medrol, Combivent, Brovana, potassium, Plavix, colchicine, aspirin. PHYSICAL EXAMINATION VITAL SIGNS: T-max 100.8, pulse 103, respirations 20, saturation 97%, blood pressure 129/54, respirations 20. GENERAL: The patient is awake, alert, in no acute distress. HEENT: Pupils are equal and reactive to light stimulus. Extraocular motion intact. Oral mucosa, pink and moist without lesion. No tongue deviation or protrusion. NECK: Trachea midline. No cervical or supraclavicular adenopathy. No thyromegaly. LUNGS: Diminished without wheezes, rhonchi, or rales. No accessory muscle use. CARDIAC: Regular rate and rhythm. S1, S2 auscultated without murmur. ABDOMEN: Soft, nontender, nondistended. Positive bowel sounds. EXTREMITIES: Moves all 4 extremities. No cyanosis, clubbing, or edema noted. Unit #: [id number] #: [id number] Patient: YASH LEMONS DIAGNOSTIC STUDIES LABORATORY RESULTS: Admission ABG showed a pH of 7.3, pCO2 of 64, PO2 of 63. INR is 1.1. Lactate was negative. BMP within normal limits with exception of glucose of 149. CBC had a normal white count of 10, hematocrit 25, platelets 219. Urine was negative for nitrite and leukocyte esterase. IMAGING STUDIES: Chest x-ray, personally visualized shows increased interstitial markings, possible small effusion. No focal pneumonia. V/Q scan was indeterminate. ASSESSMENT 1. Chronic obstructive pulmonary disease suspected advanced end-stage disease. 2. Acute chronic respiratory failure with hypercapnia and hypoxia. PLAN I doubt we are dealing with a pneumonia given no large pneumonia on chest x-ray, no fever greater 101, and normal white count. For this reason, I plan to discontinue antibiotics and observe. We will diurese for likely volume overload. Add noninvasive nocturnal ventilation for chronic respiratory failure with hypercapnia and hypoxia. Check spirometry to assess for severity of disease. We will discontinue theophylline given its low efficacy and high risk for toxicity particularly in older patient with underlying cardiac disease. Continue bronchodilators. We will continue to follow and make further recommendations as clinically indicated. Thank you for the opportunity to be involved in his care. Dictated by... Miguel Sarmiento M.D. RINKU/navya TD: 07/12/2017 02:06 JOB #: [id number] CONSULTATION REPORT Page 1 of 1 X Miguel Sarmiento MD X CONSULTATION REPORT
--- NOTE | ~2017-07-10 | US84 ---
[id number] [facility] [address] [place], [place] [address] [id number] I MR#: [id number] Acc #: [id number] NAME: YASH LEMONS : 1935 SEX: M STUDY DATE/TIME: 07/10/2017 17:52 UNIT: [id number] ROOM: 556 STUDY DESCRIPTION: US LE Veins Complete Mal Stdy Attending Physician: Kylie Tolentino M.D. Ordering Physician: Winston Miller M.D. Primary Care Physician: Isi Barraza M.D. MEDICAL IMAGING REPORT This report is preliminary unless electronic signature is present EXAM Right lower extremity venous duplex Doppler. HISTORY Shortness of air. Anticoagulation. COMPARISON None available. FINDINGS The right common femoral vein through the popliteal vein are widely patent. There is normal compressibility and spontaneous and phasic waveforms. There is noncompressible thrombus within the posterior tibial vein in the right calf. Peroneal and anterior tibial veins are patent. Superficial veins are patent. IMPRESSION Deep vein thrombus in the posterior tibial vein. Dictated by... Marcus Delvalle M.D. THIS IS AN ELECTRONICALLY VERIFIED REPORT Marcus Delvalle M.D. at 07/11/2017 7:50 PM DENNIS/na TD: 07/11/2017 17:53 JOB #: [id number] MEDICAL IMAGING REPORT Page 1 of 1 COPY
--- NOTE | ~2017-07-10 | DS ---
Unit #: [id number] #: [id number] Patient: YASH LEMONS [id number] [place], [place] [address] [id number] I MR#: [id number] NAME: YASH LEMONS ROOM: 55 Age: 81 Sex: M Admission Date: 07/10/2017 : 1935 Discharge Date: 07/16/2017 Attending Physician: Kylie Tolentino M.D. Primary Care Physician: Isi Barraza M.D. DISCHARGE SUMMARY DISCHARGE DIAGNOSES 1. Coronary artery disease status post cardiac catheterization with percutaneous coronary intervention and stent status post cardiology evaluation. Stable to be discharged. 2. Status post acute hypoxemic respiratory failure secondary to acute exacerbation of chronic obstructive pulmonary disease. Status post evaluation per pulmonary, Dr. Bradford. Stable to be discharged. Continue bronchodilators. Continue oral steroids for 5 more days. 3. Hypertension, stable. 4. History of gastrointestinal bleed and anemia of chronic disease. Stable. Discharge date hemoglobin and hematocrit 9.9 and 30.7. DISCHARGE MEDICATIONS 1. Theophylline 300 mg daily. 2. Potassium chloride 10 mEq daily. 3. Plavix 75 mg daily. 4. Percocet 5/325 mg 1 or 2 tablets q.4 hours p.r.n. pain. 5. Aspirin 81 mg daily. 6. Singulair 10 mg daily. 7. Colchicine 0.6 mg p.o. p.r.n. gout. 8. Furosemide 40 mg p.o. daily. 9. MiraLAX 17 grams daily. 10. Bisacodyl 5 mg p.o. p.r.n. constipation. 11. Metoprolol tartrate 50 mg b.i.d. 12. Brovana inhaler b.i.d. 13. Lipitor 80 mg at bedtime. 14. Amiodarone 200 mg p.o. daily. 15. Flomax 0.4 mg q.h.s. 16. Prednisone 40 mg p.o. daily for 5 days. 17. Atrovent inhaler q.i.d. CONSULTS ON THIS HOSPITAL STAY 1. Dr. Stewart, cardiology. 2. Dr. Bradford, pulmonary. PROCEDURES Cardiac cath with PCI and stents per cardiology. DIAGNOSTIC STUDIES IMAGING: Upper extremity ultrasound negative for DVT. Chest x-ray at time of admission showed small bilateral pleural effusion associated with basilar airspace opacities. Unit #: [id number] #: [id number] Patient: YASH LEMONS CT head on admission, as well - No acute intracranial findings. Lower extremity ultrasound positive for DVT in posterior tibial vein. VQ was intermediate. Chest x-ray - Emphysema. CT angio of the chest - No PE. Fusiform aneurysm. Bronchiectasis. Bilateral lower extremity Doppler - (1) still shows the lower extremity DVT. Last chest x-ray - Emphysema. HISTORY OF PRESENT HOSPITAL STAY Please refer to H and P done by my colleague for initial presentation on this gentleman. ACTIVE PROBLEMS AND DIAGNOSES ON THIS HOSPITAL STAY Coronary artery disease status post PCI with stent per Dr. Stewart. Continue aspirin and Plavix. Continue beta-geovanni. Continue Lipitor. Acute hypoxemic respiratory failure secondary to acute exacerbation of COPD. Continue bronchodilators, p.o. steroids. Status post evaluation per Dr. Bradford. Looks like lower extremity DVT, which was not anticoagulated secondary to history of GI bleed, but I am going to clarify this with my colleagues. DISPOSITION Going home after evaluation by PT/OT. FOLLOWUP 1. Outpatient followup with primary care physician in 2-3 days. 2. Outpatient followup with Dr. Bradford and Dr. Stewart. Dictated by... Ricky Plata M.D. FREDDIE/olimpia TD: 07/17/2017 08:23 JOB #: [id number] DISCHARGE SUMMARY Page 1 of 1 X Ricky Plata MD DISCHARGE SUMMARY
--- NOTE | ~2017-07-10 | EKG ---
PATIENT: YASH LEMONS UNIT #: [id number] Ventricular Rate: 112 BPM Atrial Rate: 112 BPM P-R Interval: 154 ms QRS Duration: 110 ms Q-T Interval: 344 ms QTC Calculation(Bezet): 469 ms P [place]: 82 degrees Calculated R [place]: 24 degrees Calculated T [place]: -21 degrees Diagnosis Line: Sinus tachycardia with Premature atrial complexes Diagnosis Line: Inferior infarct (cited on or before 30-DEC-2015) Diagnosis Line: Abnormal ECG Diagnosis Line: When compared with ECG of 22-MAR-2017 15:23, Diagnosis Line: Premature atrial complexes are now Present Diagnosis Line: Confirmed by MARK HARRIS MD ([id number]) on 07/11/2017 Diagnosis Line: 3:07:09 PM INTERPRETING MD: KIMBERLY WELCH
--- NOTE | ~2017-07-10 | CO ---
Unit #: [id number] #: [id number] Patient: YASH LEMONS [id number] [address] [place], [place] [address] [id number] I MR#: [id number] NAME: YASH LEMONS ROOM: 556 Age: 81 Sex: M Admission Date: 07/10/2017 : 1935 Attending Physician: Kylie Tolentino M.D. Primary Care Physician: Isi Barraza M.D. Consultation Date: 07/16/2017 CONSULTATION REPORT REASON FOR CONSULTATION IVC filter. HISTORY OF PRESENT ILLNESS This is an 81-year-old male with multiple medical problems, including COPD and coronary artery disease, who was recently admitted to [facility] with a lower GI bleed. Reportedly, he had upper and lower endoscopy with some clipping of abnormal blood vessels in his colon and was discharged on 07/10, however then became cyanotic and syncopal, and was admitted to [facility]'s Emergency Room. He had an episode of V-tach as well. PAST MEDICAL HISTORY Includes COPD, coronary artery disease, PCI with stent placement, hypertension, and dyslipidemia. PAST SURGICAL HISTORY None. SOCIAL HISTORY Positive for tobacco use, but not current smoker; denies any alcohol or illicit drugs. ALLERGIES Iodine and allopurinol. REVIEW OF SYSTEMS CONSTITUTIONAL: No fevers or chills. ENT: No ear pain or tinnitus. RESPIRATIONS: Negative for shortness breath or cough. CARDIOVASCULAR: No chest pain or palpitations. GI: Negative for nausea, vomiting, or diarrhea. : Negative for hematuria. HEME: Negative for easy bruising. ENDOCRINE: Denies any excessive thirst or hunger. MUSCULOSKELETAL: No back pain or neck pain. INTEGUMENTARY: No rash or pruritus. MEDICATIONS Include ipratropium, prednisone, Flomax, arformoterol tartrate, cefdinir capsule, colchicine, montelukast, aspirin 81 mg, Plavix 75 mg, potassium, and theophylline. PHYSICAL EXAMINATION VITAL SIGNS: Temperature is 98.8, heart rate 80, blood pressure is Unit #: [id number] #: [id number] Patient: YASH LEMONS 125/72, respirations 16, and 96% on 4 L. CONSTITUTIONAL: Well-appearing. HEENT: Eyes, no scleral icterus. NECK: No JVD or carotid bruit. LYMPHATICS: No lymphadenopathy in the neck or groins. CARDIOVASCULAR: Regular rate and rhythm. Pulse exam; 2+ femoral pulses. RESPIRATIONS: Nonlabored respirations. GI: Soft. Nontender. Nondistended. SKIN: No rashes or ulcerations. PSYCH: Normal mood and affect. EXTREMITIES: Right upper extremity with mild edema. Right lower extremity with no swelling, no edema. DIAGNOSTIC STUDIES LABORATORY STUDIES: WBC 10.3, hematocrit 30.7, and platelets 180. Sodium 142, potassium 4.1, chloride 93, CO2 is 44, BUN 27, creatinine 0.6, and glucose 82. IMAGING STUDIES: Right upper extremity ultrasound is negative for DVT, 07/10 right lower extremity venous duplex is positive for occlusive right posterior tibial vein thrombosis. ASSESSMENT AND PLAN Right lower extremity deep venous thrombosis in the setting of a history of gastrointestinal bleed. There are two ways that tibial vein thrombosis can be managed, one is with anticoagulation. If there is significant concern of recurrent gastrointestinal bleeding with therapeutic anticoagulation, then an IVC filter is reasonable. I would discuss with the Primary Team and with GI whether or not they believe he is safe to go on anticoagulation. It appears he is being discharged on aspirin and Plavix, so they cannot be that significant of a concern. Obviously, however, therapeutic anticoagulation with Coumadin or another type of oral anticoagulation is a bit stronger. Alternative is managing tibial DVT with close surveillance. Repeat ultrasound can be done in one week, and if there is propagation or extension of the clot, then anticoagulation will be recommended. At that time, however he may be considered safe to resume anticoagulation, or an IVC filter could be placed. I think either approach is fine. I have left my phone number in the chart to discuss it with his Primary Team what they believe his best option might be. If the patient is deemed to be of lower liability for followup with his primary care to get repeat imaging, then a filter is probably his best option. If the filter is to be placed, I can place it on Wednesday, pending the Interventional Radiology schedule. Dictated by... Keaton Machado TD: 07/18/2017 03:29 JOB #: [id number] Unit #: [id number] #: [id number] Patient: YASH LEMONS CONSULTATION REPORT Page 1 of 1 X X CONSULTATION REPORT
--- NOTE | ~2017-07-10 | CT16 ---
[facility] A Service of [facility] RADIOLOGY TEXT RESULTS PATIENT: YASH LEMONS LOCATION: [facility] 55- : 33 UNIT #: [id number] AGE: [address]: Kylie Tolentino MD SEX: M ORDER DR: [id number] [facility] [address] [place], [place] [address] [id number] I MR#: [id number] Acc #: [id number] NAME: YASH LEMONS : 1935 SEX: M STUDY DATE/TIME: 07/12/2017 11:32 UNIT: [facility]OM: [facility] STUDY DESCRIPTION: CT Angio Chest for PE Attending Physician: Kylie Tolentino M.D. Ordering Physician: José Antonio Stewart M.D. Primary Care Physician: Isi Barraza M.D. MEDICAL IMAGING REPORT This report is preliminary unless electronic signature is present EXAM CTA chest PE protocol with IV contrast, 07/12/2017 at 11:32 HISTORY Status post cardiac catheterization today, shortness of breath since 07/10/2017. COPD. Previous myocardial infarction. COMPARISON PA and lateral chest radiograph 07/12/2017 at 08:53, VQ lung scan 07/10/2017. CT chest without contrast 03/23/2017. PROCEDURE 2.0 mm axial images through the chest after intravenous contrast administration. 3-D coronal MIP reformatted images were obtained. This CT exam was performed with one or more of the following radiation dose reduction techniques: automatic exposure control, adjustment of mA and/or kV according to patient size, and iterative reconstruction. FINDINGS No pulmonary embolism is seen. There is ectasia. There is mild aneurysmal dilation of the ust-zw-tfdahg descending thoracic aorta at 3.1 cm with moderate calcific plaquing but no dissection. Roqi-sf-syqvzpat calcific atherosclerotic features in the proximal left subclavian artery, but no high-grade stenosis is seen. There are small to small to moderate layering bilateral pleural effusions, largest on the right measuring up to 4.3 cm. No pathologic adenopathy. Severe emphysema with biapical fibrosis or scarring similar to the previous exam. Posterior bilateral lower lobe airspace disease adjacent to the pleural effusions, favored to represent atelectasis. There is abnormal thickening and dilation of the bronchi and bronchioles, with STS. [facility] A Service of [facility] RADIOLOGY TEXT RESULTS PATIENT: YASH LEMONS LOCATION: [facility] : 33 UNIT #: [id number] AGE: [address]: Kylie Tolentino MD SEX: M ORDER DR: partial opacification of the bilateral lower lobe bronchi and bronchioles. Diverticular changes are seen within the transverse colon. The remainder of the included upper abdominal organs appear grossly unremarkable. There is some beam-hardening artifact due to the patient's arms being down to his sides. There is chronic-appearing compression deformity of T8. No acute osseous abnormalities are identified. IMPRESSION 1. No pulmonary embolism. 2. 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 No dissection. 3. Small to small to moderate bilateral pleural effusions, right greater left, with posterior bilateral lower lobe airspace disease favored to represent atelectasis. Pneumonia not excluded. 4. Bronchiectasis and bronchiolectasis within both lungs with abnormal wall thickening. There is partial opacification of bilateral lower lobe bronchi and bronchioles. Correlate clinically for bronchitis symptoms. 5. Severe emphysema with chronic biapical fibrosis. 6. Chronic T8 compression fracture. No acute osseous abnormalities. 7. Uncomplicated transverse colonic diverticular changes. Dictated by... Sirena Sorensen M.D. THIS IS AN ELECTRONICALLY VERIFIED REPORT Sirena Sorensen M.D. at 07/13/2017 8:56 AM Connor TD: 07/12/2017 15:11 JOB #: [id number] MEDICAL IMAGING REPORT Page 1 of 1 COPY
--- NOTE | ~2017-07-10 | US140 ---
[facility] A Service of [facility] RADIOLOGY TEXT RESULTS PATIENT: YASH LEMONS LOCATION: [place] [address]- : 33 UNIT #: [id number] AGE: [address]: Kylie Tolentino MD SEX: M ORDER DR: [id number] [facility] [address] [place], [place] [address] [id number] I MR#: [id number] Acc #: [id number] NAME: YASH LEMONS : 1935 SEX: M STUDY DATE/TIME: 07/15/2017 22:29 UNIT: [facility] ROOM: [facility] STUDY DESCRIPTION: US UE Veins Unilat or Ltd Stdy Attending Physician: Kylie Tolentino M.D. Ordering Physician: Ricky Plata M.D. Primary Care Physician: Isi Barraza M.D. MEDICAL IMAGING REPORT This report is preliminary unless electronic signature is present EXAM Right upper extremity venous Doppler, 07/15 at 22:29. INDICATIONS Right upper summary extremity swelling for the last 5 days. Patient on blood thinners. FINDINGS Fried-scale, color flow, and spectral Doppler waveform analysis is performed of the right upper extremity venous system. All the venous structures demonstrate normal color flow and compressibility where applicable. No superficial or deep venous thrombosis is seen. IMPRESSION Negative right upper extremity venous Doppler. Dictated by... Robert Sanchez Jr., M.D. THIS IS AN ELECTRONICALLY VERIFIED REPORT Robert Sanchez Jr., M.D. at 07/19/2017 5:49 AM ARLENE/frank TD: 07/16/2017 10:09 JOB #: [id number] MEDICAL IMAGING REPORT Page 1 of 1 COPY
--- NOTE | ~2017-07-10 | EKG ---
PATIENT: YASH LEMONS UNIT #: [id number] Ventricular Rate: 79 BPM Atrial Rate: 79 BPM P-R Interval: 148 ms QRS Duration: 100 ms Q-T Interval: 360 ms QTC Calculation(Bezet): 412 ms P [place]: 74 degrees Calculated R [place]: 30 degrees Calculated T [place]: -6 degrees Diagnosis Line: Normal sinus rhythm Diagnosis Line: Normal ECG Diagnosis Line: When compared with ECG of 11-JUL-2017 10:40, Diagnosis Line: No significant change was found Diagnosis Line: Confirmed by MARK HARRIS MD ([id number]) on 07/12/2017 Diagnosis Line: 6:28:31 PM INTERPRETING MD: KIMBERLY WELCH
--- NOTE | ~2017-07-10 | CR63 ---
[facility] A Service of [facility] RADIOLOGY TEXT RESULTS PATIENT: YASH LEMONS LOCATION: [facility] 55 : 33 UNIT #: [id number] AGE: [address]: Kylie Tolentino MD SEX: M ORDER DR: [id number] [facility] [address] [place], [place] [address] [id number] I MR#: [id number] Acc #: [id number] NAME: YASH LEMONS : 1935 SEX: M STUDY DATE/TIME: 07/12/2017 8:53 UNIT: [facility] ROOM: [facility] STUDY DESCRIPTION: CR Chest 2 View Attending Physician: Kylie Tolentino M.D. Ordering Physician: Winston Miller M.D. Primary Care Physician: Isi Barraza M.D. MEDICAL IMAGING REPORT This report is preliminary unless electronic signature is present EXAM PA and lateral chest DATE: 07/12/2017 HISTORY Shortness of breath and weakness for 2 days. COMPARISON AP portable chest 07/10/2017. FINDINGS Trace bilateral pleural effusions persist with mild bibasilar opacities present which may represent atelectasis, although pneumonia is not excluded. Background emphysematous changes are present. Heart size within normal limits. No acute osseous abnormalities are identified. Chronic appearing compression fracture of the T8 vertebral body demonstrated to better advantage on the CT chest performed on the same date. IMPRESSION 1. Small bilateral pleural effusions are stable. 2. Mild bibasilar airspace disease may represent atelectasis although pneumonia is not excluded, similar to the prior chest radiograph of 07/10/2017. 3. Emphysema. Dictated by... Sirena Sorensen M.D. THIS IS AN ELECTRONICALLY VERIFIED REPORT Sirena Sorensen M.D. at 07/13/2017 8:56 AM [facility] A Service [facility] RADIOLOGY TEXT RESULTS PATIENT: YASH LEMONS LOCATION: [facility] : 33 UNIT #: [id number] AGE: [address]: Kylie Tolentino MD SEX: M ORDER DR: BLAKE/huang TD: 07/13/2017 02:02 JOB #: [id number] MEDICAL IMAGING REPORT Page 1 of 1 COPY
--- NOTE | ~2017-07-10 | CR72 ---
[facility] A Service of [facility] RADIOLOGY TEXT RESULTS PATIENT: YASH LEMONS LOCATION: [place] [address]- : 33 UNIT #: [id number] AGE: [address]: Kylie Tolentino MD SEX: M ORDER DR: [id number] [facility] [address] [place], [place] [address] [id number] I MR#: [id number] Acc #: [id number] NAME: YASH LEMONS : 1935 SEX: M STUDY DATE/TIME: 07/10/2017 15:28 UNIT: [facility] ROOM: [facility] STUDY DESCRIPTION: CR Chest Single View Portable Attending Physician: Kylie Tolentino M.D. Ordering Physician: Aelx Neil D.O. Primary Care Physician: Isi Barraza M.D. MEDICAL IMAGING REPORT This report is preliminary unless electronic signature is present EXAM Single view chest. INDICATIONS Shortness of air for 1 day. Chest pain. FINDINGS Single portable AP view of the chest compared to 03/22/2017. Heart and mediastinal contours are unchanged with background emphysema. Mild bibasilar airspace opacities and/or small effusions have slightly increased from the prior study. There is no pneumothorax. IMPRESSION Small bilateral pleural effusions and associated basilar airspace opacities have slightly increased from the prior study. Dictated by... Marcus Delvalle M.D. THIS IS AN ELECTRONICALLY VERIFIED REPORT Marcus Delvalle M.D. at 07/11/2017 5:16 PM RPNelda/emanuel TD: 07/11/2017 16:47 JOB #: [id number] MEDICAL IMAGING REPORT Page 1 of 1 COPY
--- NOTE | ~2017-07-10 | DS ---
Unit #: [id number] #: [id number] Patient: YASH LEMONS [id number] [place] [id number] [facility] [place], [place] [address] [id number] I MR#: [id number] NAME: YASH LEMONS ROOM: 556 Age: 81 Sex: M Admission Date: 07/10/2017 : 1935 Discharge Date: 07/17/2017 Attending Physician: Kylie Tolentino M.D. Primary Care Physician: Isi Barraza M.D. DISCHARGE SUMMARY ADDENDUM This is addendum to the discharge summary dictated yesterday by Dr. Plata. Patient's discharge was held yesterday because there was right lower extremity DVT. Patient had below knee DVT of questionable age. Anticoagulation is risky. Patient has had history of AVMs and GI bleed. Patient is at this time on aspirin and Plavix. Dr. Espinosa was consulted from hematology services. It has been decided to have repeat right lower extremity Doppler done as outpatient on 07/22. After that, patient will follow up with seam presser to decide on anticoagulation therapy. If there is increase in size of the clot, then either anticoagulation versus IV filter placement can be decided. Patient and patient's is aware of this. Patient is being discharged home. Medication as per Med Rec. EXAMINATION ON DISCHARGE Blood pressure is 100/49, respiratory rate 18, pulse is 64, temperature 97.5, oxygen saturation is 96%. CHEST has fair air entry, decreased at the bases. CVS - regular rhythm. ABDOMEN is soft. DISCHARGE INSTRUCTIONS 1. Patient is being discharge home in stable condition. 2. Follow up with Dr. Stewart as outpatient in 2-3 weeks. 3. Follow up with primary care provider in one week. 4. Right lower extremity Doppler to be done in one week. 5. Follow up with Dr. Espinosa from hematology services after left extremity Doppler. 6. Please note - if the clot is increasing in size, then either anticoagulation therapy or IVC filter needs to be placed. Dictated by... Kylie Tolentino M.D. Danita TD: 07/20/2017 11:26 JOB #: [id number] Unit #: [id number] #: [id number] Patient: RALF LEMONSTON DISCHARGE SUMMARY Page 1 of 1 X Kylie Tolentino MD X DISCHARGE SUMMARY
--- NOTE | ~2017-07-10 | NM69 ---
[facility] A Service of [facility] RADIOLOGY TEXT RESULTS PATIENT: YASH LEMONS LOCATION: [facility] 556-01 : 33 UNIT #: [id number] AGE: [address]: Kylie Tolentino MD SEX: M ORDER DR: [id number] [facility] [address] [place], [place] [address] [id number] I MR#: [id number] Acc #: [id number] NAME: YASH LEMONS : 1935 SEX: M STUDY DATE/TIME: 07/10/2017 18:47 UNIT: [facility] ROOM: [facility] STUDY DESCRIPTION: NM Pulm Vent and Perf Attending Physician: Kylie Tolentino M.D. Ordering Physician: Winston Miller M.D. Primary Care Physician: Isi Barraza M.D. MEDICAL IMAGING REPORT This report is preliminary unless electronic signature is present EXAM Ventilation-perfusion scan. INDICATION Shortness of air and respiratory distress. COMPARISON Chest radiograph, 07/10/2017. FINDINGS 36 mCi technetium 99m DTPA was inhaled for the ventilation portion of the examination. There are poor ventilation images with central clumping of the radiotracer and diffuse heterogeneity of the radiotracer distribution. This is compatible with an obstructive lung disease. 6 mCi of technetium-99m MAA was injected IV per protocol for the perfusion portion of the examination. There is heterogeneous distribution of the radiotracer with relative photopenia in the lung apices. This perfusional pattern is better than the corresponding ventilation images and there are no ventilation-perfusion mismatches to indicate a pulmonary embolus. IMPRESSION Intermediate ventilation-perfusion scan due to the severe COPD. No ventilation-perfusion mismatches are identified to suggest a pulmonary embolus. Dictated by... Marcus Delvalle M.D. THIS IS AN ELECTRONICALLY VERIFIED REPORT Marcus Delvalle M.D. at 07/11/2017 7:51 PM [facility] A Service of [facility] RADIOLOGY TEXT RESULTS PATIENT: YASH LEMONS LOCATION: [facility] 556-01 : 33 UNIT #: [id number] AGE: [address]: Kylie Tolentino MD SEX: M ORDER DR: DENNIS/na TD: 07/11/2017 18:31 JOB #: [id number] MEDICAL IMAGING REPORT Page 1 of 1 COPY
--- NOTE | ~2017-07-10 | EKG ---
PATIENT: YASH LEMONS UNIT #: [id number] Ventricular Rate: 88 BPM Atrial Rate: 88 BPM P-R Interval: 150 ms QRS Duration: 104 ms Q-T Interval: 346 ms QTC Calculation(Bezet): 418 ms P [place]: 79 degrees Calculated R [place]: 48 degrees Calculated T [place]: 9 degrees Diagnosis Line: Normal sinus rhythm Diagnosis Line: Low voltage QRS Diagnosis Line: Borderline ECG Diagnosis Line: When compared with ECG of 10-JUL-2017 15:04, Diagnosis Line: (unconfirmed) Diagnosis Line: Premature atrial complexes are no longer Present Diagnosis Line: T wave inversion no longer evident in Inferior Diagnosis Line: leads Diagnosis Line: Confirmed by MARK HARRIS MD ([id number]) on 07/11/2017 Diagnosis Line: 3:16:41 PM INTERPRETING MD: KIMBERLY WELCH
--- NOTE | ~2017-07-10 | CR63 ---
[facility] A Service of [facility] RADIOLOGY TEXT RESULTS PATIENT: YASH LEMONS LOCATION: [place] [address]- : 33 UNIT #: [id number] AGE: [address]: Kylie Tolentino MD SEX: M ORDER DR: [id number] [facility] [address] [place], [place] [address] [id number] I MR#: [id number] Acc #: [id number] NAME: YASH LEMONS : 1935 SEX: M STUDY DATE/TIME: 07/14/2017 8:22 UNIT: [facility] ROOM: [facility] STUDY DESCRIPTION: CR Chest 2 View Attending Physician: Kylie Tolentino M.D. Ordering Physician: Miguel Sarmiento M.D. Primary Care Physician: Isi Barraza M.D. MEDICAL IMAGING REPORT This report is preliminary unless electronic signature is present EXAM PA and lateral chest, 07/14/2017. HISTORY 81-year-old male complains of shortness breath and weakness since 07/10/2017. Previous history of myocardial infarction with coronary artery stent placement. COMPARISON PA and lateral chest and CT-A PE protocol chest, 07/12/2017. FINDINGS Lungs are hyperinflated and emphysematous. Small bilateral pleural effusions are present. Bibasilar airspace disease is present, similar to prior. No visible pneumothorax. Heart size is stable and within normal limits. No acute osseous abnormalities are identified. There are degenerative changes of the bilateral acromioclavicular joints and degenerative spurring within the thoracic spine. IMPRESSION 1. Small bilateral pleural effusions and bibasilar airspace disease potentially represent atelectasis or pneumonia, not thought to be significantly changed when compared to the chest radiograph and chest CT from 07/12/2017. 2. Emphysema. Dictated by... Sirena Sorensen M.D. THIS IS AN ELECTRONICALLY VERIFIED REPORT Sirena Sorensen M.D. at 07/15/2017 12:[address] [facility] A Service of [facility] & [facility] RADIOLOGY TEXT RESULTS PATIENT: YASH LEMONS LOCATION: [facility] 556-01 : 33 UNIT #: [id number] AGE: [address]: Kylie Tolentino MD SEX: M ORDER DR: TD: 07/14/2017 11:10 JOB #: [id number] MEDICAL IMAGING REPORT Page 1 of 1 COPY
--- NOTE | ~2017-07-10 | US84 ---
[id number] [facility] [address] [place], [place] [address] [id number] I MR#: [id number] Acc #: [id number] NAME: YASH LEMONS : 1935 SEX: M STUDY DATE/TIME: 07/12/2017 17:56 UNIT: C5B ROOM: 556 STUDY DESCRIPTION: US LE Veins Complete Mal Stdy Attending Physician: Kylie Tolentino M.D. Ordering Physician: Jeff Bradford M.D. Primary Care Physician: Isi Barraza M.D. MEDICAL IMAGING REPORT This report is preliminary unless electronic signature is present EXAM Bilateral lower extremity venous ultrasound HISTORY History is DVT right lower extremity on ultrasound 07/10/2017. Currently on anticoagulation. FINDINGS Ultrasound examination of the lower extremity veins was performed from the groin to the calf bilaterally with gómez-scale, color Doppler and spectral Doppler evaluation. Exam is compared to prior ultrasound 07/10/2017 Occlusive DVT is again demonstrated in the right posterior tibial vein, unchanged. Remainder of the veins are patent and compressible. No additional DVT or SVT. IMPRESSION 1. Stable exam compared to 07/10/2017. Persistent occlusive DVT in the right calf in the posterior tibial vein. 2. The remainder of the study is negative and unchanged. No additional DVT or SVT. Dictated by... Oswaldo Zarate M.D. THIS IS AN ELECTRONICALLY VERIFIED REPORT Oswaldo Zarate M.D. at 07/13/2017 11:43 PM DFL/andres TD: 07/13/2017 07:58 JOB #: [id number] MEDICAL IMAGING REPORT Page 1 of 1 COPY
[~2017-07-10 14:28] MED LIST changes: +OMNICEF300 MG PO; +PREDNISONE PO
[2017-07-10] MEDS ORDERED: ATROVENT HFA12.9 G1 INH (15:18)
[2017-07-10] MEDS ORDERED: FLOMAX0.4 M1 DOB (15:18)
[2017-07-10 15:28] LABS: ARTERIAL BLD GAS O2 SATURATION 90.5 % (90.0-100.0); ARTERIAL BLOOD GAS CARBOXY HB 1.5 %sat (0.0-9.0); ARTERIAL BLOOD GAS HCO3 33.2 mmol/L; ARTERIAL BLOOD GAS MET HB 0.8 %sat (0.0-2.0); ARTERIAL BLOOD GAS pH 7.321 (7.350-7.450)
[2017-07-10 15:29] LABS: ARTERIAL BLOOD GAS ALLEN TEST NORMAL; ARTERIAL BLOOD GAS ART SITE LEFT RADIAL; ARTERIAL BLOOD GAS DELIVERY NASAL CANNULA; ARTERIAL BLOOD GAS PCO2 64.2 mmHg (35.0-45.0); ARTERIAL BLOOD GAS PO2 63.5 mmHg (80.0-100); ARTERIAL DRAW? YES
[2017-07-10 15:32] LABS: BASOPHIL% 0.4 % (0-2.5); EOSINOPHIL# 0.2 X10e3 (0-0.7); EOSINOPHIL% 1.7 % (0.0-7.0); HEMATOCRIT 25.8 % (38.0-50.0); HEMOGLOBIN 8.1 gm/dL (13.0-16.0); LYMPHOCYTE# 0.3 X10e3 (1.0-3.5); LYMPHOCYTE% 3.1 % (17.0-45.0); MEAN CELL VOLUME 72.1 FL (83-96); MEAN CORPUSCULAR HEMOGLOBIN 22.5 PG (28-34); MEAN CORPUSCULAR HGB CONC 31.2 g/dL (30-36); MEAN PLATELET VOLUME 8.3 FL (6.5-11.5); MONOCYTE# 0.7 X10e3 (0-1.0); MONOCYTE% 6.5 % (3.0-12.0); NEUTROPHIL# 9.3 X10e3 (1.5-7.1); NEUTROPHIL% 88.3 % (40-75); PLATELET COUNT 219 X10e3 (140-420); RED BLOOD COUNT 3.58 X10e (3.90-5.60); RED CELL DISTRIBUTION WIDTH 24.2 % (11.0-15.5); WHITE BLOOD COUNT 10.5 X10e3 (4.0-10.5)
[2017-07-10 15:34] LABS: DIFF IND YES
[2017-07-10 15:41] LABS: INR 1.1; PROTHROMBIN TIME (PATIENT) 11.4 SECONDS (10.0-11.7)
[2017-07-10 15:44] LABS: PARTIAL THROMBOPLASTIN TIME <20.0 SECONDS (23.5-31.3)
[2017-07-10 15:50] LABS: POC - CKMB <1.0 ng/mL (0.0-7.9); POC - TROPONIN <0.05 ng/mL (<=0.05)
[2017-07-10 15:54] LABS: ALBUMIN SERUM 3.6 g/dL (3.5-5.0); BILIRUBIN, DIRECT 0.1 mg/dL (0.0-0.2); BILIRUBIN,INDIRECT 0.4 mg/dL (0.0-0.9); BILIRUBIN,TOTAL 0.5 mg/dL (0.2-2.0); CALCIUM SERUM 8.2 mg/dL (8.4-10.2); CREATININE SERUM 0.7 mg/dL (0.6-1.4); GLOM FILT RATE Estimated 87.3 mL/min (>60); POTASSIUM 3.8 mmol/L (3.5-5.1); PROTEIN TOTAL SERUM 5.9 g/dL (6.0-8.3)
[2017-07-10 15:58] LABS: HYPOCHROMIA MOD; PLATELET ESTIMATE NORMAL (NORMAL)
[2017-07-10 15:59] LABS: MICROCYTOSIS SL; POIKILOCYTOSIS MOD
[2017-07-10 16:00] LABS: ELLIPTOCYTES PRESENT; POLYCHROMASIA SL; SPHEROCYTE SL
[2017-07-10 16:01] LABS: ACANTHOCYTES PRESENT
[2017-07-10 16:55] LABS: ARTERIAL BLD GAS O2 SATURATION 92.7 % (90.0-100.0); ARTERIAL BLOOD GAS ALLEN TEST NORMAL; ARTERIAL BLOOD GAS ART SITE LEFT RADIAL; ARTERIAL BLOOD GAS CARBOXY HB 1.5 %sat (0.0-9.0); ARTERIAL BLOOD GAS DELIVERY NASAL CANNULA; ARTERIAL BLOOD GAS HCO3 33.7 mmol/L; ARTERIAL BLOOD GAS MET HB 0.9 %sat (0.0-2.0); ARTERIAL BLOOD GAS PO2 71.8 mmHg (80.0-100); ARTERIAL BLOOD GAS pH 7.337 (7.350-7.450); ARTERIAL DRAW? YES
[2017-07-11 01:00] LABS: MAGNESIUM 2.4 mg/dL (1.6-3.0); POTASSIUM 4.1 mmol/L (3.5-5.1)
[2017-07-11 05:39] LABS: BASOPHIL% 0.3 % (0-2.5); HEMATOCRIT 24.2 % (38.0-50.0); HEMOGLOBIN 7.4 gm/dL (13.0-16.0); LYMPHOCYTE# 0.3 X10e3 (1.0-3.5); LYMPHOCYTE% 5.2 % (17.0-45.0); MEAN CELL VOLUME 72.3 FL (83-96); MEAN CORPUSCULAR HGB CONC 30.4 g/dL (30-36); MEAN PLATELET VOLUME 8.5 FL (6.5-11.5); MONOCYTE# 0.4 X10e3 (0-1.0); MONOCYTE% 6.4 % (3.0-12.0); NEUTROPHIL# 5.2 X10e3 (1.5-7.1); NEUTROPHIL% 88.1 % (40-75); PLATELET COUNT 186 X10e3 (140-420); RED BLOOD COUNT 3.35 X10e (3.90-5.60); RED CELL DISTRIBUTION WIDTH 24.4 % (11.0-15.5); WHITE BLOOD COUNT 5.9 X10e3 (4.0-10.5)
[2017-07-11 05:44] LABS: DIFF IND NO
[2017-07-11 06:20] LABS: URINE SOURCE CLEAN CATCH
[2017-07-11 06:25] LABS: URINE APPEARANCE CLOUDY; URINE BILIRUBIN NEG (NEG); URINE BLOOD NEG (NEG); URINE COLOR YELLOW; URINE GLUCOSE NEG (NEG); URINE KETONE TRACE (NEG); URINE LEUKOCYTE ESTERASE NEG (NEG); URINE NITRATE NEG (NEG); URINE PH 5.5 (5-8); URINE PROTEIN TRACE (NEG); URINE SPECIFIC GRAVITY 1.031 (1.003-1.035); URINE UROBILINOGEN 0.2 MG/DL (NEG)
[2017-07-11 06:31] LABS: CULTURE INDICATED? NO
[2017-07-12 08:06] LABS: HEMATOCRIT 27.4 % (38.0-50.0); HEMOGLOBIN 8.5 gm/dL (13.0-16.0); MEAN CELL VOLUME 73.8 FL (83-96); MEAN CORPUSCULAR HEMOGLOBIN 22.9 PG (28-34); MEAN CORPUSCULAR HGB CONC 31.1 g/dL (30-36); MEAN PLATELET VOLUME 8.5 FL (6.5-11.5); RED BLOOD COUNT 3.71 X10e (3.90-5.60); RED CELL DISTRIBUTION WIDTH 25.7 % (11.0-15.5)
[2017-07-12 08:07] LABS: WHITE BLOOD COUNT 12.2 X10e3 (4.0-10.5)
[2017-07-12 08:18] LABS: INR 1.1; PROTHROMBIN TIME (PATIENT) 11.8 SECONDS (10.0-11.7)
[2017-07-12 08:36] LABS: BUN/CREATININE RATIO 36.66; CALCIUM SERUM 8.8 mg/dL (8.4-10.2); CREATININE SERUM 0.6 mg/dL (0.6-1.4); POTASSIUM 4.2 mmol/L (3.5-5.1)
[2017-07-13 06:41] LABS: CREATININE SERUM 0.7 mg/dL (0.6-1.4); GLOM FILT RATE Estimated 87.3 mL/min (>60)
[2017-07-13 06:52] LABS: PROCALCITONIN <0.05 NG/ML
[2017-07-14 05:53] LABS: HEMATOCRIT 28.4 % (38.0-50.0); HEMOGLOBIN 8.8 gm/dL (13.0-16.0); MEAN CORPUSCULAR HEMOGLOBIN 23.2 PG (28-34); MEAN PLATELET VOLUME 8.6 FL (6.5-11.5); RED BLOOD COUNT 3.78 X10e (3.90-5.60); WHITE BLOOD COUNT 10.6 X10e3 (4.0-10.5)
[2017-07-14 06:19] LABS: CALCIUM SERUM 8.8 mg/dL (8.4-10.2); CREATININE SERUM 0.5 mg/dL (0.6-1.4); GLOM FILT RATE Estimated 100.3 mL/min (>60); POTASSIUM 4.5 mmol/L (3.5-5.1)
[2017-07-15 05:26] LABS: HEMATOCRIT 30.1 % (38.0-50.0); HEMOGLOBIN 9.5 gm/dL (13.0-16.0); MEAN CELL VOLUME 75.1 FL (83-96); MEAN CORPUSCULAR HEMOGLOBIN 23.7 PG (28-34); MEAN CORPUSCULAR HGB CONC 31.5 g/dL (30-36); MEAN PLATELET VOLUME 8.4 FL (6.5-11.5); RED BLOOD COUNT 4.02 X10e (3.90-5.60); RED CELL DISTRIBUTION WIDTH 27.5 % (11.0-15.5); WHITE BLOOD COUNT 10.5 X10e3 (4.0-10.5)
[2017-07-15 07:03] LABS: BUN/CREATININE RATIO 46.66; CALCIUM SERUM 8.9 mg/dL (8.4-10.2); CREATININE SERUM 0.6 mg/dL (0.6-1.4); MAGNESIUM 2.2 mg/dL (1.6-3.0); POTASSIUM 5.2 mmol/L (3.5-5.1)
[2017-07-16 06:18] LABS: HEMATOCRIT 30.7 % (38.0-50.0); HEMOGLOBIN 9.9 gm/dL (13.0-16.0); MEAN CELL VOLUME 75.4 FL (83-96); MEAN CORPUSCULAR HEMOGLOBIN 24.2 PG (28-34); MEAN CORPUSCULAR HGB CONC 32.2 g/dL (30-36); MEAN PLATELET VOLUME 8.4 FL (6.5-11.5); RED BLOOD COUNT 4.07 X10e (3.90-5.60); RED CELL DISTRIBUTION WIDTH 28.7 % (11.0-15.5); WHITE BLOOD COUNT 10.3 X10e3 (4.0-10.5)
[2017-07-16 06:47] LABS: CALCIUM SERUM 8.7 mg/dL (8.4-10.2); CREATININE SERUM 0.6 mg/dL (0.6-1.4); POTASSIUM 4.1 mmol/L (3.5-5.1)
[2017-07-17] MEDS ORDERED: AMIODARONE HCL200 MG PO (17:24)
[2017-07-17] MEDS ORDERED: ATORVASTATIN CA80 MG PO (17:25)
[2017-07-17] MEDS ORDERED: LOPRESSOR PO (17:26)
[2017-07-17] MEDS ORDERED: MIRALAX17 G2 PO (17:27)
[2017-07-17] MEDS ORDERED: LAXATIVE5 M1 PO (17:27)
[2017-07-17] MEDS ORDERED: FUROSEMIDE40 MG PO (17:28)
[2017-07-17] MEDS ORDERED: OXYCODONE-ACET1 EACH PO (17:30)
== END 2017-07-17 18:55 | disposition home health service (06) | DRG 189 ==
LOC: CED 14:28 → CEDOF 16:42 → C5B 16:42 → CED 17:53 → CEDOF 17:53 → C5B 19:50
PROVIDERS: Emergency Medicine; Family Medicine Sleep Medicine; Hospitalist; Internal Medicine; Internal Medicine Cardiovascular Disease; Physician Assistant Medical
PROC: B24BZZZ Ultrasonography of Heart with Aorta (ICD-10-PCS; principal; 2017-07-11)
PROC: 30233N1 Transfusion of Nonautologous Red Blood Cells into Peripheral Vein, Percutaneous Approach (ICD-10-PCS; 2017-07-11)
PROC: B32TYZZ Computerized Tomography (CT Scan) of Left Pulmonary Artery using Other Contrast (ICD-10-PCS; 2017-07-12)
PROC: B32SYZZ Computerized Tomography (CT Scan) of Right Pulmonary Artery using Other Contrast (ICD-10-PCS; 2017-07-12)
PROC: 4A023N7 Measurement of Cardiac Sampling and Pressure, Left Heart, Percutaneous Approach (ICD-10-PCS; 2017-07-12)
PROC: B211YZZ Fluoroscopy of Multiple Coronary Arteries using Other Contrast (ICD-10-PCS; 2017-07-12)
PROC: B215YZZ Fluoroscopy of Left Heart using Other Contrast (ICD-10-PCS; 2017-07-12)
DX: J96.21 Acute and chronic respiratory failure with hypoxia (principal); I47.2 Ventricular tachycardia; I82.441 Acute embolism and thrombosis of right tibial vein; J44.1 Chronic obstructive pulmonary disease with (acute) exacerbation; J90 Pleural effusion, not elsewhere classified; J96.22 Acute and chronic respiratory failure with hypercapnia; I25.10 Atherosclerotic heart disease of native coronary artery without angina pectoris; Z95.5 Presence of coronary angioplasty implant and graft; I10 Essential (primary) hypertension; E78.5 Hyperlipidemia, unspecified; M19.90 Unspecified osteoarthritis, unspecified site; N40.0 Benign prostatic hyperplasia without lower urinary tract symptoms; R55 Syncope and collapse; J84.10 Pulmonary fibrosis, unspecified; I25.2 Old myocardial infarction; Z99.81 Dependence on supplemental oxygen; D64.9 Anemia, unspecified; Z87.891 Personal history of nicotine dependence; Z79.82 Long term (current) use of aspirin; Z91.041 Radiographic dye allergy status
CPT/HCPCS: 36415; 36600; 70450; 71010; 71020; 71275; 78582; 80048; 80076; 80198; 80200; 80202; 81003; 82308; 82553; 82565; 82803; 83605; 83735; 83880; 84132; 84484; 85025; 85027; 85610; 85730; 86850; 86900; 86901; 86923; 87040; 93005; 93306; 93970; 93971; 94640; 94660; 94760; 96365; 97162; 97166; 99152; 99153; 99285; A9540; A9567; C1769; C1887; C1894; G8987-GO; G8988-GO; G8989-GO; G8990-GP; G8991-GP; G8992-GP; J1644; J1940; J2250; J2543; J2916; J2920; J2930; J3010; J3260; J3370; P9016; Q9967